=== PATIENT | female | born 1970 | race Caucasian/White ===

== ENCOUNTER 2017-07-17 14:02 | Emergency (ER) | payer MEDICAID, SELFPAY ==
[~2017-07-17] VITALS: Ht 157.5 cm; Wt 91.0 kg
[2017-07-17] MEDS ORDERED: ONDANSETRON ODT 4 MG ONE (14:18)
[2017-07-17] MEDS ORDERED: HYDROcodone/APAP 10/325 MG TABLET ONE (14:18)
[2017-07-17] MEDS ORDERED: ONDANSETRON ODT 4 MG PO ONE (14:30)
[2017-07-17] MEDS ORDERED: HYDROcodone/APAP 10/325 MG TABLET PO ONE (14:30)
[2017-07-17] MEDS ORDERED: IBUPROFEN 200 MG TABLET PO ONE (14:30)
[2017-07-17] MEDS ORDERED: IBUPROFEN 200 MG TABLET ONE ×2 (15:30→15:31)
[2017-07-17 16:12] VITALS: BP 136/78
== END 2017-07-17 16:14 | disposition home or self-care (01) ==
LOC: ED 16:00
DX: S93.492A Sprain of other ligament of left ankle, initial encounter (principal); F17.200 Nicotine dependence, unspecified, uncomplicated; W18.40XA Slipping, tripping and stumbling without falling, unspecified, initial encounter; Y93.89 Activity, other specified; Y92.480 Sidewalk as the place of occurrence of the external cause; Y99.8 Other external cause status
CPT/HCPCS: 29515; 73610; 73630; 99284; Q0162